=== PATIENT | female | born 1995 | race Caucasian/White ===

== ENCOUNTER 2024-03-30 14:18 | Outpatient (CLI) | payer BC, SELFPAY ==
[2024-03-30 14:56] LABS: Basophils % 0.3 % (0.1-2.0); Eosinophils # 0.1 K/mm3 (0.0-0.4); Eosinophils % 0.9 % (0.1-12.0); Hematocrit 35.1 % (37.0-47.0); Lymphocytes # 1.9 K/mm3 (0.7-4.5); Lymphocytes % 20.8 % (10-50); Mean Corpuscular HGB Conc 34.2 g/dL (31.8-35.4); Mean Corpuscular Hemoglobin 29.6 pg (27.0-31.2); Mean Corpuscular Volume 86.7 fl (81-99); Mean Platelet Volume 8.1 fl (7.4-10.4); Monocytes # 0.5 K/mm3 (0.1-1.0); Monocytes % 5.7 % (1.7-9.3); Neutrophils # 6.6 K/mm3 (1.8-7.8); Neutrophils % 72.2 % (37.0-80.0); Platelet Count 303 K/mm3 (142-424); Red Blood Count 4.05 M/mm3 (4.20-5.40); Red Cell Distribution Width 15.6 % (11.5-17.5); White Blood Count 9.2 K/mm3 (4.8-10.8)
[2024-03-31 07:33] LABS: HCV Ab Non Reactive (Non Reactive); Hepatitis B Surface Antigen Negative (Negative)
[2024-03-31 08:24] LABS: HIV Screen 4th Generation wRfx Non Reactive (Non Reactive); Rubella Antibodies, IgG 2.55 index (Immune >0.99)
[2024-03-31 11:34] LABS: Rapid Plasma Reagin Ab Titer Non Reactive titer (NonRea<1:1)
== END 2024-03-30 23:59 | disposition home or self-care (01) ==
LOC: LAB 14:20
PROVIDERS: PCP Family Medicine; Visit Provider Obstetrics & Gynecology
DX: O26.892 Other specified pregnancy related conditions, second trimester (principal); Z3A.27 27 weeks gestation of pregnancy; B96.29 Other Escherichia coli [E. coli] as the cause of diseases classified elsewhere
CPT/HCPCS: 36415; 85025; 86593; 86703; 86762; 86850; 87086; 87088; 87186; 87340; G0432

== ENCOUNTER 2024-04-06 12:28 | Outpatient (CLI) | payer BC, SELFPAY ==
--- NOTE | 2024-04-06 12:29 | US_ITS ---
PROCEDURE: US OB /MATERNAL DETAIL CLINICAL INDICATION: 20 week + gestation -Anatomy Scan OB Complete COMPARISON: No exams were available for comparison FINDINGS: Transabdominal sonographic images of the pelvis were obtained. From her established due date she is 28 weeks 3 days. Single viable intrauterine gestation. Transverse position. Placenta: Posteriorplacenta grade 1. There is an increased amount of fluid. The cervix appears satisfactory. Closed and measuring 4.3 cm in length. Complete survey performed and there are multiple anomalies as seen on the submitted images in PACS. Multiple anomalies identified on survey imaging by technologist. Difficult scan due to maternal obesity. Active fetus. Three-vessel cord with satisfactory umbilical cord insertion. 4- chamber heart noted. Situs, aortic arch appear normal. LVOT, RVOT, three-vessel view are not visualized. There appears to be a large atrial septal defect. Survey of brain & ventricles. Marked hydrocephaly. Cerebellum, thalamus, choroid plexus, cisterna magna are not clearly identified. Face and neck survey unremarkable. Profile, nasion, lips and nose appeared normal. Diaphragm and chest views unremarkable. Abdomen: Only one kidney is seen and appears enlarged and multi cystic. There is fluid around the capsule of the kidney. Stomach is seen. Bladder is not clearly identified today. Spine: Survey of the spine satisfactory with no anomalies identified nor imaged. Cervical, thoracic, lower spine appear normal. Both arms and legs noted. 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 Amniotic Fluid: Polyhydramnios. ALBIN 20.37 cm, MVP 11.5 cm. Measurements: Average ultrasound age 30weeks 4days. Estimated due date by ultrasound age 0806/11/2024. Estimated weight 1,345g BPD = 32weeks 3days, >98 percentile HC = 33weeks 2days, >98 percentile AC = 29weeks 3days, 71 percentile FL = 27weeks 1day, 7 percentile Growth Percentile= 65 Heart Rate = 144bpm Cerebellum = not measured, Humerus = 27weeks 6days HC/AC is 1.19 FL/BPD is 0.63 FL/AC is 0.2 IMPRESSION: 1. Viable fetus in the transverse position with a posterior placenta grade 1. 2. There are multiple anomalies and consist of the followin. Heart abnormal with large ASD. LVOT, RVOT, three-vessel view not clearly visualized. 4. Only 1 kidney is identified and appears enlarged and multi-cystic. There is fluid around the capsule of the kidney. 5. There is marked hydrocephaly and identification of brain anatomy is difficult. 6. Polyhydramnios with an ALBIN 20.37 cm, MVP 11.5 cm. 7. Bladder is not clearly identified. 8. 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 9. Patient has been scheduled for a maternal medicine consult. 10. Dr. Smallwood reviewed the images. Dictated by: Johnny Farley MD 04/06/2024 16:13 Johnny Farley MD in [facility] 04/06/2024 16:13
[2024-04-06] MEDS: RHO(D) IMMUNE GLOBULIN 1,500 UNIT SYRINGE IM (15:05)
[2024-04-06 15:08] VITALS: BP 140/86; PULSE 104; RESP 19; O2SAT 98
== END 2024-04-06 15:10 | disposition home or self-care (01) ==
LOC: RAD 12:29 → INF 15:14
PROVIDERS: PCP Family Medicine; Visit Provider Obstetrics & Gynecology
DX: O26.893 Other specified pregnancy related conditions, third trimester (principal); Z3A.28 28 weeks gestation of pregnancy; Z36.3 Encounter for antenatal screening for malformations; Z87.59 Personal history of other complications of pregnancy, childbirth and the puerperium
CPT/HCPCS: 36415; 76811; 96372; J2790